=== PATIENT | female | born 1975 | race Caucasian/White ===

== ENCOUNTER → 2021-01-24 15:36 | Outpatient (BNVA) | payer MEDICAID, SELFPAY | PROVIDERS: Family Provider Family Medicine; PCP Family Medicine; Visit Provider Family Medicine | DX: M54.9 Dorsalgia, unspecified (principal); R30.0 Dysuria; S39.012A Strain of muscle, fascia and tendon of lower back, initial encounter; M54.30 Sciatica, unspecified side; X58.XXXA Exposure to other specified factors, initial encounter | CPT/HCPCS: 81000 ==

== ENCOUNTER 2023-09-23 15:20 | Observation (INO) | payer BC, MEDICAID, SELFPAY ==
[2023-09-18 13:12] LABS: Add Urine Microscopic? NO; Charge for UA Resulting for Rev
[2023-09-18 13:26] LABS: Bilirubin Urine Neg (Negative); Blood Urine Neg (Negative); Glucose Urine UA Norm (Normal); Ketones Urine Negative (Negative); Leukocyte Esterase Urine Negative (Negative); Nitrate Urine Negative (Negative); Protein Urine Neg (Negative); Urine Appearance Clear (CLEAR); Urine Color Light yellow (Yellow); Urobilinogen Urine Norm (Negative); pH Urine 7 (5-7)
[2023-09-18 13:40] LABS: Basophils % 0.5 %; Eosinophils % 0.4 %; Hematocrit 46.7 % (36-47); Lymphocytes # 2.1 10^3/uL (0.8-4.8); Lymphocytes % 26.4 %; Mean Corpuscular Hemoglobin 32.1 pg (27-33); Mean Corpuscular Volume 94.2 fl (85-98); Mean Platelet Volume 9.9 fL (7.4-10.4); Monocytes # 0.4 10^3/uL (0.2-0.9); Monocytes % 5.3 %; Neutrophils # 5.24 10^3/uL (1.8-7.7); Neutrophils % 67.1 %; Nucleated Red Blood Cells % 0 %; Platelet Count 223 10^3/cmm (157-399); Red Blood Count 4.96 10^6/uL (3.85-5.65); Red Cell Distribution Width 13.1 % (12.1-15.1)
[2023-09-18 13:50] LABS: OR HCG Qualitative Urine Negative (Negative)
--- NOTE | 2023-09-18 13:51 | P.ANESASSM_ITS ---
Pre-Anesthetic Assessment Height/Weight: Height 1.55 m Operation Date: 09/23/23 11:50 Proposed Procedures p Anterior and posterior colporrhaphy 19799, Single incision sling 95295, Sacrospinous fixation 19824, N81.10,N81.6(Not Applicable) - Roney Ron MD s Posterior Repair(Not Applicable) - Roney Ron MD s Sling Single Incision Sling(Not Applicable) - Roney Ron MD s Sacrospinous Ligament Suspension(Not Applicable) - Roney Ron MD Familial anesthetic complications: none Was Beta Angela taken within 24 hours: N/A Was Clonidine taken within 24 hours: N/A Social Tobacco and No alcohol Exam alert, oriented x 3 and regular rate & rhythm Airway Submandibular: within normal limits Cervical ROM: within normal limits Mallampati: Class II Dentition: false (upper) Pulmonary Chronic Obstructive Pulmonary Disease [facility] [place] Lower Back Pain Anesthetic Plan ASA status: 3 Anesthesia: General Medications/Allergies Home Medications Medication Instructions Recorded Confirmed Last Taken Type albuterol sulfate 90 mcg/actuation 2 inh inhalation Q6H PRN sob. 01/24/21 09/18/23 1 Day Ago History aerosol inhaler (ProAir HFA) ~09/17/23 budesonide-formoterol HFA 160 1 inh inhalation DAILY 03/31/23 09/18/23 Unknown History mcg-4.5 mcg/actuation aerosol inhaler (Symbicort) varenicline 1 mg tablet (Chantix) 1 mg PO BID 09/15/23 09/18/23 1 Day Ago History ~09/17/23 Allergies Allergy/AdvReac Type Severity Reaction Status Date / Time Penicillins Allergy Unknown Family Verified 09/18/23 13:09 allergy [facility] Anesthesia Family History Denies family history of Colon cancer Ovarian cancer Diabetes Breast cancer Hypertension Uterine cancer Thyroid disease Stroke Social History Smoking and tobacco/nicotine status: current every day tobacco/nicotine user cigarettes Packs smoked per day: 1 Alcohol intake: never Data Anesthesia 09/18/23 13:24 09/18/23 13:24 Short CBC 09/18/23 Range/Units 13:24 WBC 7.80 (3.29-11.43) 10^3/uL Hgb 15.90 (11.27-16.99) g/dL Hct 46.7 (36-47) % MCV 94.2 (85-98) fl Plt Count 223 (157-399) 10^3/cmm Neut % (Auto) 67.1 % Neut # (Auto) 5.24 (1.8-7.7) 10^3/uL Urine 09/18/23 Range/Units 13:00 Urine Color Light yellow (Yellow) Urine Appearance Clear (CLEAR) Urine pH 7 (5-7) Ur Specific [place] 1.000 L (1.005-1.030) Urine Protein Neg (Negative) Urine Glucose (UA) Norm (Normal) Urine Ketones Negative (Negative) Urine Nitrate Negative (Negative) Urine Bilirubin Neg (Negative) Ur Leukocyte Esterase Negative (Negative) Cardiac Studies: 2 No Data to Display
[2023-09-18 13:55] LABS: Alanine Aminotransferase 18 U/L (0-33); Albumin Level 4.2 g/dL (3.5-5.2); Alkaline Phosphatase 134 U/L (35-105); Aspartate Amino Transferase 16 U/L (0-32); Blood Urea Nitrogen 9 mg/dL (6-20); Calcium 9.3 mg/dL (8.5-10.5); Carbon Dioxide 24 mmol/L (22-29); Chloride 107 mmol/L (98-107); Globulin 3.3 g/dL (1.3-4.6); Glomerular Filtration Rate 133.4 mL/min (90-130); Glucose 85 mg/dL (65-115); Osmolality Calculated 286 mOsm/kg (285-295); Sodium 139 mmol/L (136-145); Total Bilirubin 0.3 mg/dL (0.15-1.2); Total Protein 7.5 g/dL (6.6-8.7)
[2023-09-23] VITALS (12 sets, daily range): BP systolic 93–141; BP diastolic 59–86; PULSE 69–105; RESP 15–18; TEMP 36.1–36.6; O2SAT 90–97; BMI 30.2
[2023-09-23] MEDS: sodium chloride 0.9% 500 ML IV (10:30)
[2023-09-23] MEDS: scopolamine 1.5 Patch 1 PATCH TRANSDERMA (11:00)
[2023-09-23] MEDS: sodium chloride 0.9% 1,000 ML 30 ML IV (11:02)
[2023-09-23] MEDS: enoxaparin 30 mg/0.3 mL Syringe SUBCUT (11:03)
--- NOTE | 2023-09-23 11:20 | P.ANESUD_ITS ---
Pre-Anesthetic Update Pre-Anesthetic Assessment: Date of Surgery/Procedure: 09/23/23 Preop Alisson gnosis: Cystocele stage III, rectocele stage II Proposed Procedure: Operation Date: 09/23/23 11:50 Proposed Procedures p Anterior and posterior colporrhaphy 24022, Single incision sling 86911, Sacrospinous fixation 76061, N81.10,N81.6(Not Applicable) - Roney Ron MD s Posterior Repair(Not Applicable) - MD doris Da Silva Sling Single Incision Sling(Not Applicable) - Roney Ron MD s Sacrospinous Ligament Suspension(Not Applicable) - Roney Ron MD Last Intake: Intake Last Liquid Date 09/22/23 Last Liquid Time 23:00 Last Solid Date 09/22/23 Last Solid Time 22:00 Vitals: Temperature 97.9 F 09/23/23 10:25 Temperature Source Temporal Artery S can 09/23/23 10:25 Pulse Rate 69 09/23/23 10:25 Respiratory Rate 18 09/23/23 10:25 Blood Pressure 141/86 09/23/23 11:00 Blood Pressure Sena n 104 09/23/23 10:25 Pulse Oximetry 93 09/23/23 10:25 Oxygen Delivery Me thod Room Air 09/23/23 10:25 Exam: Pre-Anes Outpt Exam: alert, oriented x 3, clear to auscultation bilaterally and regular rate & rhythm Cardiac Studies: No Data to Display
--- NOTE | 2023-09-23 12:16 | W.PM.OPSUD ---
Surgery/Procedure H&P Update DATE OF PROCEDURE: September 23, 2023 DATE H&P PERFORMED: 09/15/23 H&P UPDATE INFORMATION: I have reviewed H&P completed within last 30 days, I have examined patient prior to procedure and No changes to prior documentation PREOP DIAGNOSIS: Cystocele stage III, rectocele stage II PLANNED PROCEDURE: Operation Date: 09/23/23 11:50 Proposed Procedures p Anterior and posterior colporrhaphy 56602, Single incision sling 29575, Sacrospinous fixation 69824, N81.10,N81.6(Not Applicable) - Roney Ron MD s Posterior Repair(Not Applicable) - Roney Ron MD s Sling Single Incision Sling(Not Applicable) - Roney Ron MD s Sacrospinous Ligament Suspension(Not Applicable) - Roney Ron MD
[2023-09-23] MEDS: levofloxacin-dextrose 5 % 500 MG/100 ML PREMIX 100 MG IV (12:51)
[2023-09-23] MEDS: vancomycin 1,000 MG in sodium chloride 0.9% 250 ML 250 MG IV (12:51)
[2023-09-23] MEDS: lidocaine-epi 2% PF 1:200,000 20 mL SDV INJECTION (13:58)
--- NOTE | 2023-09-23 15:09 | P.OP_ITS ---
Operative Report Date of procedure: September 23, 2023 Pre-op diagnosis: Cystocele Rectocele Urinary incontinence Post-op diagnosis: same Procedure done: Anterior colporrhaphy augmented with allograft Mid urethral sling Posterior colporrhaphy Sacrospinous fixation Cystoscopy Implants: Coloplast Altis midurethral sling. Coloplast dermis allograft Surgeon: Roney Ron MD Estimated blood loss (mL): 200 IV fluids (mL): 1,300 Urine output (mL): 300 Complications: None Procedure: After obtaining informed consent, the patient was taken to the operating room and placed in the supine position, given general anesthesia, and prepped and draped in sterile fashion. The abdomen, vulva and vagina were prepped and draped in a sterile manner. A time out procedure was performed. The anterior vaginal mucosa beneath the midurethra was infiltrated with 2% lidocaine with epinephrine. A vertical midline incision was made beneath the midurethra, near ly 1.5 cm length. Careful submucosal dissection was performed bilaterally up to the interior portion of the inferior pubic ramus. The insertion of adductor longus tendon on the patient?s pubic ramus was identified as reference land phong. Palpated the notch along the internal edge of ischiopubic ramus where the adductor longus tendon and the inferior pubic ramus meet. The Altis single incision sling (SIS) was selected. Then the needle of the SIS inserted aiming at the location of this notch. One of the integrated self-fixating tips place onto the needle by sliding it over the end of the needle. The needle/sling assembly was inserted toward the location of identified reference notch making sure that the flat of the handle is perpendicular to the desired path. The needle was tracked along the posterior surface of the ischiopubic ramus until the midline phong on the mesh is approximately at the midline position under the urethra. The needle was removed and the same was repeated on the contralateral side until the appropriate sling tension under the urethra was achieved ensuring that the mesh lays flat. The needle was removed and vaginal incision was closed in a running interlocking fashion with 2-0 Vicryl. The vaginal mucosa was then injected in the midline with normal saline. The vaginal mucosa was scored in the midline with the Bovie approximately 1 cm medial to the urethral meatus to 1 cm distal to the vaginal cuff. This vaginal mucosa was then undermined and then incised in the midline with the Metzenbaum scissors. The lateral aspects of the vaginal mucosa were then grasped with the Allis clamps and the vaginal mucosa was then dissected off the underlying fascia with the Metzenbaum scissors. Again, there was noted to be quite a bit of oozing at the incision, which was controlled with cautery. After adequate dissection was performed, bilaterally. An Coloplast dermis allograft modified at time of application to fit spacea, 4 x 3 cm piece . The allograft was placed in front of cystocele ready to be implanted facing the vagina mucosa. Suture is placed at distal end of graft and placed towards vaginal cuff. Final suture is placed on proximal portion of the graft to complete the placement overlying the bladder. Then Interrupted vertical mattress sutures of 0 Vicryl were used to elevate the cystocele superiorly. The excessive vaginal mucosa was then trimmed with the Metzenbaum scissors and the vaginal mucosa was then reapproximated in the running interlocking fashion with 2-0 Vicryl. Posterior colpoperineorrhaphy was performed with Allis clamps to grasp hymenal caruncles to allow 2-3 fingerbreadths caliber; infiltrated with 2% Lidocaine with epinephrine before triangular incision to excise fibrotic subdermal rectovaginal tissue from old perineal laceration. Fascia dissected off towards vaginal cuff and deemed weakened and thinned-out in midline. The posterior vaginal mucosa is opened in the routine fashion as described previously in Posterior Repair. A finger is inserted through the incision in the posterior vaginal mucosa, dissecting out the rectovaginal space (RVS). The right rectal pillar (RRP) is identified. The rectal pillar can be bluntly perforated either with the finger or with the tip of a long Laura clamp. A Miladys-Luis A retractor is used for exposing the rectovaginal space in order to enter the pararectal space with retraction of the cardinal ligament, vagina, and rectum. Displacing the rectum to the left and the cardinal ligament and ureter anteriorly. A sponge dissector is used to bluntly dissect the sacrospinous ligament removing areolar tissue. The ischial spine was palpated directly, and a area approximately 2 cm medial to the spine was selected for insertion of the Anchorsure transvaginal sacrospinous fixation system. One end of the suture of Anchoresure system inserted through the sacrospinous ligament is placed through the muscular layer of the vagina. In a similar manner, the second suture is placed. The opposite end of the suture in the sacrospinous ligament is left free and held on a small hemostat. Then traction on this suture will draw the vaginal vault directly to the ligament, where a square knot affixes it to the sacrospinous ligament. After the neto stich is tied the second safety stich is tied. Then the colporrhaphy/vaginal repair is carried out in routine fashion. At this point, the rectum was from the posterior vaginal mucosa using sharp and blunt dissection, and the rectal bulge imbricated in the midline with interrupted sutures of 2-0 vicryl suture. Levator ani muscles on either side were approximated in the midline with interrupted 0 Vicryl sutures. Excess posterior vaginal mucosa was excised, and the vaginal episiotomy was repaired by approximating the posterior vaginal mucosa with a suture of Vicryl #0. Then the Elam catheter was removed and cystoscope was inserted. The bladder was filled with sterile water. Complete evaluation of the bladder mucosa was performed noting no lacerations, dimpling, tears, bleeding of the mucosa or muscular layers. Both ureteral orifices were identified. Prompt excretion of urine from both ureteral orifices was noted. Cystoscope was withdrawn. The Elam catheter was replaced. Excellent hemostasis was obtained. A vaginal pack is placed overnight as postoperative support for the vaginal tissues after graft placement and closure of vaginal incisions. Sponge, lap, needle, and instrument counts were correct times three. The patient was taken to the recovery room, awake and in stable condition.
--- NOTE | 2023-09-23 16:34 | ANE.PACU2 ---
Inpatient post-anesthesia follow up: Vital signs: Temperature 97 F Pulse Rate 94 Respiratory Rate 18 Blood Pressure 114/68 Pulse Oximetry 91 Oxygen Delivery Me thod Room Air Oxygen Flow Rate 8 Fraction of Inspir ed Oxygen Hydration adequate: Yes Nausea and vomiting: No Mental status: Baseline Additional Comments: no apparent anesthetic complications noted.
[2023-09-23] MEDS: ketorolac 30 mg/mL INJ IVP (20:39)
[2023-09-23] MEDS: docusate sodium 100 mg Capsule PO (20:39)
[2023-09-23] MEDS: nicotine 21 mg Patch 1 PATCH TRANSDERMA (21:50)
--- NOTE | 2023-09-23 23:09 | PC.NURSE ---
This RN was standby assistance for pt. pt ambulated around OB department 2 laps. Pt tolerated well without difficulty. Pt states she is in no pain.
[2023-09-24] MEDS: ketorolac 30 mg/mL INJ IVP (02:54)
[2023-09-24 04:12] VITALS: BP 111/74; PULSE 79; RESP 16; TEMP 36.7
--- NOTE | 2023-09-24 05:10 | PC.NURSE ---
This RN pulled out vaginal packing after removal of browning catheter. Pt tolerated without difficulty.
[2023-09-24 05:13] LABS: Hematocrit 36.1 % (36-47); Mean Corpuscular HGB Conc 33.5 g/dL (30-55); Mean Corpuscular Hemoglobin 31.9 pg (27-33); Mean Corpuscular Volume 95.3 fl (85-98); Platelet Count 187 10^3/cmm (157-399); Red Blood Count 3.79 10^6/uL (3.85-5.65); Red Cell Distribution Width 13.2 % (12.1-15.1); White Blood Count 12.22 10^3/uL (3.29-11.43)
--- NOTE | 2023-09-24 08:51 | P.DS_ITS ---
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 Mora is a 47 year old post hysterectomy with cystocele stage III and rectocele stage II. Hospital Course Hospital Course Ms. Mora is a 47 year old with a cystocele rectocele admitted for planned anterior colporrhaphy augmented with allograft, mid urethral sling posterior colporrhaphy and sacrospinous fixation. The procedures were performed without complications. Overnight observation was uneventful. She is afebrile and hemodynamically stable postoperative day 1. Tolerating diet well. Ambulating without difficulty. She was counseled regarding pelvic rest for 6 weeks (no sex, no tampons, no vaginal douches). Return to the emergency room if any fever, increased bleeding or pain. She was also advised against heavy lifting with limitations to 10 pounds. Physical Exam Narrative: GA: Alert and oriented ?3. HEENT: WNL. Heart: Regular rate and rhythm. Lungs: Clear to auscultation bilaterally. Abdomen: Bowel sounds present, nontender, minimal tenderness, incision clean and dry, no redness, pain or edema. [employer] REP: No bleeding. Extremities: No edema, no cyanosis, no calves pain. Urinary Catheter Management: Browning: Cath Placed During This Visit: yes, but has since been removed by the nurse Reason for Continuing Indwelling Catheter: Decision to DC Catheter Urinary Catheter Date of Insertion: 09/23/23 Urinary Catheter Time of Insertion: 13:21 Date Urinary Catheter Removed: 09/24/23 Time Urinary Catheter Discontinued: 05:00 Discharge Data Studies Completed and Pending Laboratory Results WBC 12.22 10^3/uL (3.29-11.43) H 09/24/23 05:05 RBC 3.79 10^6/uL (3.85-5.65) L 09/24/23 05:05 Hgb 12.10 g/dL (11.27-16.99) 09/24/23 05:05 Hct 36.1 % (36-47) 09/24/23 05:05 MCV 95.3 fl (85-98) 09/24/23 05:05 MCH 31.9 pg (27-33) 09/24/23 05:05 MCHC 33.5 g/dL (30-55) 09/24/23 05:05 RDW 13.2 % (12.1-15.1) 09/24/23 05:05 Plt Count 187 10^3/cmm (157-399) 09/24/23 05:05 MPV 10.0 fL (7.4-10.4) 09/24/23 05:05 Neut % (Auto) 67.1 % 09/18/23 13:24 Lymph % (Auto) 26.4 % 09/18/23 13:24 Swain % (Auto) 5.3 % 09/18/23 13:24 Eos % (Auto) 0.4 % 09/18/23 13:24 Baso % (Auto) 0.5 % 09/18/23 13:24 Neut # (Auto) 5.24 10^3/uL (1.8-7.7) 09/18/23 13:24 Lymph # (Auto) 2.1 10^3/uL (0.8-4.8) 09/18/23 13:24 Swain # (Auto) 0.4 10^3/uL (0.2-0.9) 09/18/23 13:24 Eos # (Auto) 0.0 10^3/uL (0.0-0.8) 09/18/23 13:24 Baso # (Auto) 0.0 10^3/uL (0.0-0.1) 09/18/23 13:24 Nucleated RBC % (auto) 0 % 09/18/23 13:24 Nucleated RBCs # 0.0 /100WBC 09/18/23 13:24 Sodium 139 mmol/L (136-145) 09/18/23 13:24 Potassium 4.0 mmol/L (3.5-5.1) 09/18/23 13:24 Chloride 107 mmol/L (98-107) 09/18/23 13:24 Carbon Dioxide 24 mmol/L (22-29) 09/18/23 13:24 Anion Gap 12.0 (5-19) 09/18/23 13:24 BUN 9 mg/dL (6-20) 09/18/23 13:24 Creatinine 0.5 mg/dL (0.5-0.9) 09/18/23 13:24 GFR Calculation 133.4 mL/min (90-130) H 09/18/23 13:24 Glucose 85 mg/dL (65-115) 09/18/23 13:24 Calculated Osmolality 286 mOsm/kg (285-295) 09/18/23 13:24 Calcium 9.3 mg/dL (8.5-10.5) 09/18/23 13:24 Total Bilirubin 0.3 mg/dL (0.15-1.2) 09/18/23 13:24 AST 16 U/L (0-32) 09/18/23 13:24 ALT 18 U/L (0-33) 09/18/23 13:24 Alkaline Phosphatase 134 U/L (35-105) H 09/18/23 13:24 Total Protein 7.5 g/dL (6.6-8.7) 09/18/23 13:24 Albumin 4.2 g/dL (3.5-5.2) 09/18/23 13:24 Globulin 3.3 g/dL (1.3-4.6) 09/18/23 13:24 Urine Color Light yellow (Yellow) 09/18/23 13:00 Urine Appearance Clear (CLEAR) 09/18/23 13:00 Urine pH 7 (5-7) 09/18/23 13:00 Ur Specific [place] 1.000 (1.005-1.030) L 09/18/23 13:00 Urine Protein Neg (Negative) 09/18/23 13:00 Urine Glucose (UA) Norm (Normal) 09/18/23 13:00 Urine Ketones Negative (Negative) 09/18/23 13:00 Urine Blood Neg (Negative) 09/18/23 13:00 Urine Nitrate Negative (Negative) 09/18/23 13:00 Urine Bilirubin Neg (Negative) 09/18/23 13:00 Urine Urobilinogen Norm mg/dL (Negative) 09/18/23 13:00 Ur Leukocyte Esterase Negative (Negative) 09/18/23 13:00 Urine HCG, Qual Negative (Negative) 09/18/23 13:00 Vitals Last Vital Signs Temp 98.1 F 09/24/23 04:12 Pulse 79 09/24/23 04:12 Resp 16 09/24/23 04:12 BP 111/74 09/24/23 04:12 Pulse Ox 91 09/23/23 15:34 O2 Del Method Room Air 09/24/23 04:12 O2 Flow Rate 8 09/23/23 15:16 Results Labs OB ([facility]): Hct 36.1 % (36-47) 09/24/23 Hgb 12.10 g/dL (11.27-16.99) 09/24/23 Plt Count 187 10^3/cmm (157-399) 09/24/23 Discharge Plan Discharge Patient Disposition: Home Condition: Stable Prescriptions: New ibuprofen 800 mg tablet 800 mg PO TID PRN (Reason: pain) Qty: 60 0RF hydrocodone-acetaminophen 5-325 mg tablet 1 tab PO Q4H PRN (Reason: pain) Qty: 20 0RF Colace 100 mg capsule 100 mg PO BID Qty: 60 3RF acetaminophen 325 mg capsule 325 mg PO Q4H PRN (Reason: fever or pain) Qty: 60 0RF Continued albuterol sulfate [ProAir HFA] 90 mcg/actuation HFA aerosol inhaler 2 inh inhalation Q6H PRN (Reason: sob.) budesonide-formoterol [Symbicort] 160-4.5 mcg/actuation HFA aerosol inhaler 1 inh inhalation DAILY Discharge Orders: Discharge Order (Routine); Ordered 09/24/23 Ordered By: Roney Ron Referrals: Roney Ron MD [Physician] - 11/06/23 12:45 pm Marilou Beltran APN, WHNP [Nurse Practitioner] - 10/10/23 2:15 pm (You have a nurse visit on Friday the at 9:30am for removal of browning catheter. ) Discharge Diet: Soft Mechanical Discharge Activity: Limit activity as instructed Patient Instructions: Bladder Sling for Women (GEN), Anterior Vaginal Repair (GEN), Posterior Vaginal Repair (GEN), Opioid Safety Activity Restrictions/Additional Instructions: 1. Please call [facility] on next working day to make your post-operative appointment in 2 weeks. 2. Please stay home until you come back to the clinic on first post-hospa tilization check up. 3. Please follow instructions on your medications CAREFULLY. 4. If you have abdominal incision, do not cover it unless dressing is necessary because of drainage. OK to shower, but avoid bath. Leave steri-strips until they fall off. If they are still on one week after surgery, you may remove them. 5. If you had vaginal surgery or vaginal repair, Dr. Ron may instruct you to take SITZ bath. 6. Yellow, blood tinged odorous vaginal discharge is usually normal after hysterectomy or vaginal surgeries. 7. No SEXUAL INTERCOURSE, tampons, or douches until you are completely released from the post-operative care. 8. Avoid constipation by eating right and maybe using some Metamucil or Milk of Magnesia. 9. All prescription refills are given during the working hours. Please do no wait till it runs out. Call the clinic at [phone] before your medication runs out. The clinic will get in touch with your doctor to prescribe medications if necessary. 10. Please remain within 40 mile radius from our hospital because emergencies do happen now and then during the post-operative period. 11. If you have stairs at home, take one step at a time slowly and minimize the number of trips. It helps to stay in one floor for the next few days. No lifting except what you can lift by one hand until you are released from the post-operative care. 12. Driving is discouraged until you are well healed. It may be 3-4 weeks before you feel strong enough to drive. You should be able to turn and look through the rear window without pain and you should be able to push the brake pedal very hard without pain before you drive. No fast rules, but SAFETY should be your primary concern. DO NOT drive if you are on sedating medications such as narcotics. 13. Call the clinic (during working hours) to make urgent appointment or go to the Emergency room, if any of the following occurs: i. Vaginal bleeding becomes heavy, more than a period. ii. Incision becomes red and sore, or drains pus. iii. Your TEMPERATURE is over 100.4F or you have chill. iv. IV site becomes red and swollen (a little ``knot?? is usually OK) v. Persistent nausea and vomiting vi. Persistent constipation or diarrhea vii. Rash or allergic reaction to medications. Discharge Attestations [facility]OR OF HEALTHCARE SYSTEMS Time Spent in Discharge Care*: greater than 30 min Coding Level of Care Code Acute Code for Chg Fwd
[2023-09-24 12:35] VITALS: BP 118/79; PULSE 75; RESP 16; TEMP 36.4
== END 2023-09-24 12:47 | disposition home or self-care (01) ==
LOC: OBGYN 15:32
PROVIDERS: Admitting Provider Obstetrics & Gynecology; PCP Family Medicine; Visit Provider Obstetrics & Gynecology
PROC: 0JQC0ZZ Repair Pelvic Region Subcutaneous Tissue and Fascia, Open Approach (ICD-10-PCS; CPT 57240; principal; 2023-09-23 11:40)
PROC: (CPT 57250; 2023-09-23 11:40)
PROC: (CPT 57288; 2023-09-23 11:40)
PROC: (CPT 57282; 2023-09-23 11:40)
DX: N81.10 Cystocele, unspecified (principal); N81.6 Rectocele; R32 Unspecified urinary incontinence; J44.9 Chronic obstructive pulmonary disease, unspecified; F17.210 Nicotine dependence, cigarettes, uncomplicated; Z90.710 Acquired absence of both cervix and uterus
CPT/HCPCS: 57260; 57282; 57288; 36415; 51798; 80053; 81003; 84703; 85025; 85027; C1713; C1762; G0378; J1100; J1200; J1650; J1885; J1956; J2405; J2704; J2710; J3010; J3370; J3490; J7030; J7040; J7050

== ENCOUNTER 2024-11-09 08:12 | Outpatient (CLI) | payer MEDICAID, SELFPAY ==
--- NOTE | 2024-11-09 08:19 | XR_ITS ---
WS: [id number] XR lumbar spine 2-3V* [id number] REASON FOR EXAM: LOW BACK PAIN FINDINGS: Mild levoscoliosis. Mild straightening of the normal lordosis. No vertebral body compression deformity or focal lesion. Mild vertebral body osteophytosis L3-S1. Mild narrowing of the L3-L4 and L4-L5 disc space with moderate narrowing of the L5-S1 disc space. Possible spondylolysis at L5-S1 4 to 5 mm of anterolisthesis of L5 on S1. Degenerative spondylosis as above. XR/XR lumbar spine 2-3V* [id number] IMPRESSION: Spondylolisthesis and possibly spondylolysis at L5-S1 as above.
== END 2024-11-09 08:13 | disposition home or self-care (01) ==
PROVIDERS: PCP Family Medicine; Visit Provider Family Medicine
DX: M47.896 Other spondylosis, lumbar region (principal); M43.16 Spondylolisthesis, lumbar region; R93.7 Abnormal findings on diagnostic imaging of other parts of musculoskeletal system; M41.86 Other forms of scoliosis, lumbar region; M25.78 Osteophyte, vertebrae; M47.897 Other spondylosis, lumbosacral region
CPT/HCPCS: 72100

== ENCOUNTER 2024-11-16 09:05 | Outpatient (CLI) | payer MEDICAID, SELFPAY ==
--- NOTE | 2024-11-16 09:10 | MR_ITS ---
WS: [id number] MRI LUMBAR SPINE NONCONTRAST TECHNIQUE: Sagittal T1, T2 and STIR imaging. Axial T1 and T2 imaging. CLINICAL INFORMATION: SPONDYLOLISTHESIS/LUMBAGO W/SCIATICA COMPARISON: None. FINDINGS: Mild lumbar curve. No acute compression. Grade 1 anterolisthesis L5 on S1. Chronic bilateral pars defects L5-S1. L1-L2: Normal. L2-L3: Mild facet arthropathy. Mild LEFT foraminal narrowing. Spinal canal is patent. L3-L4: Mild annular bulging. Slight narrowing of the subarticular recess bilaterally. Mild bilateral proximal foraminal narrowing. L4-L5: Mild disc bulging eccentric to the LEFT. Mild LEFT foraminal narrowing. Mild facet arthropathy. L5-S1: Grade 1 anterolisthesis. Moderate facet arthropathy. Moderate LEFT and mild RIGHT foraminal narrowing. LEFT renal cyst partially visualized measuring 2.3 cm. Visualized pelvic bony structures: Normal. Paravertebral soft tissues: Normal. Disc osteophyte protrusions in the mid thoracic spine. This could followed up with thoracic spine MRI. MR/MR lumbar spine wo con* [id number] IMPRESSION: 1. Grade 1 anterolisthesis L5-S1 with bilateral pars defects. 2. Mild LEFT L2-3, bilateral L3-4 and LEFT L4-5 foraminal narrowing. 3. Narrowing of the L3-4 subarticular recess. 4. Moderate LEFT L5-S1 foraminal narrowing. 5. Mild to moderate facet arthropathy L3-L5.
== END 2024-11-16 09:06 | disposition home or self-care (01) ==
LOC: RAD 09:07
PROVIDERS: PCP Family Medicine; Visit Provider Family Medicine
DX: M43.16 Spondylolisthesis, lumbar region (principal); M54.40 Lumbago with sciatica, unspecified side; M43.17 Spondylolisthesis, lumbosacral region; M48.061 Spinal stenosis, lumbar region without neurogenic claudication; M48.07 Spinal stenosis, lumbosacral region; M47.896 Other spondylosis, lumbar region; M43.8X6 Other specified deforming dorsopathies, lumbar region; M51.369 Other intervertebral disc degeneration, lumbar region without mention of lumbar back pain or lower extremity pain; M47.897 Other spondylosis, lumbosacral region; N28.1 Cyst of kidney, acquired; M25.78 Osteophyte, vertebrae; M51.24 Other intervertebral disc displacement, thoracic region; R93.7 Abnormal findings on diagnostic imaging of other parts of musculoskeletal system
CPT/HCPCS: 72148